=== PATIENT | female | born 1950 | race Caucasian/White ===

== ENCOUNTER 2016-09-24 05:30 | Inpatient (IN) ==
[2016-09-24] MEDS ORDERED: NS 1,000 ML ONE ×6 (06:30→07:41)
[2016-09-24] MEDS ORDERED: HUMALOG (PARKWAY) ONE ×2 (07:28)
[2016-09-24 08:58] LABS: CLARITY CLEAR (CLEAR); COLOR YELLOW; UR AMPHETAMINES QUAL NONE DETECTED (NONE DETECT); UR BARBITUATES QUAL NONE DETECTED (NONE DETECT); UR BENZODIAZEPIN QUAL NONE DETECTED (NONE DETECT); UR CANNABINOIDS QUAL NONE DETECTED (NONE DETECT); UR COCAINE QUAL NONE DETECTED (NONE DETECT); UR MDMA QUAL NONE DETECTED (NONE DETECT); UR METHADONE QUAL NONE DETECTED (NONE DETECT); UR METHAMPHETAMINE QUAL NONE DETECTED (NONE DETECT); UR OPIATES QUAL NONE DETECTED (NONE DETECT); UR OXYCODONE QUAL NONE DETECTED (NONE DETECT); UR PCP QUAL NONE DETECTED (NONE DETECT); UR TCA QUAL NONE DETECTED (NONE DETECT); URINE CULTURE PL NEEDED? NO; URINE EPITHELIAL CELLS <10 /HPF (<10); URINE SOURCE CATH; URINE WBC <10 /HPF (<10)
[2016-09-24 08:59] LABS: BILIRUBIN URINE NEGATIVE (NEGATIVE); BLOOD URINE NEGATIVE (NEGATIVE); LEUKOCYTES URINE TRACE (NEGATIVE); NITRITE URINE NEGATIVE (NEGATIVE); PROTEIN URINE TRACE mg/dL (NEGATIVE); SP GRAVITY URINE 1.015; UROBILINOGEN URINE NORMAL
[2016-09-24 09:00] LABS: MANUAL DIFF NEEDED? NO
[2016-09-24 09:01] LABS: BASO% 0.1 % (0.0-0.8); EOS# 0.01 X1000 (0.0-0.7); EOS% 0.1 % (0.0-10.0); HEMOGLOBIN 15.7 g/dL (12.0-16.0); LYMPH# 0.86 X1000 (1.2-3.4); LYMPH% 11.8 % (20.5-51.1); MCH 28.2 PG (27-31); MCHC 32.7 g/dL (33-37); MCV 86.3 FL (81-99); MPV 11.5 FL (7.4-10.4); NEUT% 76.4 % (42.2-75.2); PLT 488 X1000 (130-400); RBC 5.56 XMIL (4.2-5.4)
[2016-09-24 09:02] LABS: AGAP 29; BUN 165 mg/dL (8-22); CHLORIDE 106 mmol/L (98-107); POTASSIUM 5.9 mmol/L (3.5-5.1); SODIUM 151 mmol/L (136-145); TCO2 16 mmol/L (25-35)
[2016-09-24 09:03] LABS: ACETONE SERUM MODERATE (NEGATIVE); ALBUMIN 3.5 g/dL (3.5-5.0); ALKALINE PHOSPHATASE 84 U/L (32-104); AMYLASE 104 U/L (20-200); CALCIUM 10.4 mg/dL (8.8-10.2); CK PROFILE 731 U/L (24-173); COSMO 390; GOT 32 U/L (10-30); GPT 46 U/L (10-36); LIPASE 88 U/L (13-60); TOTAL PROTEIN 7.5 g/dL (6.3-8.3)
[2016-09-24 09:05] LABS: CK INDEX 0.8 (0.0-2.5)
[2016-09-24] MEDS ORDERED: POTASSIUM CHLORIDE 40 MEQ in NS 250 ML IV PRN (09:21)
[2016-09-24] MEDS ORDERED: D50W SYRINGE IV PRN (09:21)
[2016-09-24] MEDS ORDERED: HUMULIN R 100 UNIT in NS 99 ML IV SCH (09:21)
[2016-09-24] MEDS ORDERED: ZOFRAN IV PRN (09:21)
[2016-09-24] MEDS ORDERED: MAGNESIUM SULFATE 2 GM/S.W.I. 2 GM/50 ML IVPB IV PRN (09:21)
[2016-09-24] MEDS ORDERED: POTASSIUM CHLORIDE 20 MEQ in NS 100 ML IV PRN (09:21)
[2016-09-24] MEDS: NS 1,000 ML IV SCH ×3 (09:38→12:59)
--- NOTE | 2016-09-24 10:47 | EKG Report ---
Test Performed on : 09/24/2016 06:45:16 AM Test Reason : dka Blood Pressure : / mmHG Vent. Rate : 094 BPM Atrial Rate : 094 BPM P-R Int : 124 ms QRS Dur : 114 ms QT Int : 410 ms P-R-T Axes : 044 -11 133 degrees QTc Int : 512 ms Normal sinus rhythm. Anterolateral infarct , age undetermined Prolonged QT Abnormal ECG No previous ECGs available Unconfirmed Result
[2016-09-24 11:02] LABS: BE -12.2 mmoll (-3.0-3.0); BLOOD TYPE ARTERIAL; DRAW SITE R RADIAL; O2(CT) 18.9 mL/dL (15.0-23.0); PCO2(98.6) 30 mmHg (35-45); PO2(98.6) 88 mmHg (60-100); SAMPLE BLOOD; SAO2 96.6 % (95.0-100.0); THB 14.1 g/dL (11.5-17.4); pH(98.6) 7.26 (7.35-7.45)
[2016-09-24 11:03] LABS: HEMOGLOBIN A1C 9.3 % (4.8-6.0)
[2016-09-24 11:06] LABS: ALLEN TEST YES; MODALITY CANNULA
--- NOTE | 2016-09-24 11:32 | PROGRESS NOTE ---
DATE: 09/24/2016 SUBJECTIVE: Today, Ms. Cao referred to be doing a little better than yesterday. Briefly, Ms. Cao is a and lives alone. She has a sister who lives in [place] and another one. According to the sister from [place], they normally communicate almost every day, but they did not hear from her. The last time they heard from her was Monday night when she spoke with one of the other sisters. , nobody heard from her, so yesterday the sister who is here with her tried multiple times to reach her, and she was unsuccessful. So she asked the neighbor to check on her. The neighbor went and knocked several times on a window and realized that the patient was on the floor in the bathroom. So she called back to the sister in [place], and she decided to drive down. Upon arrival, they saw her in the bedroom on the floor. She was not able to get up and she was completely altered. She was brought into the emergency department over here and was found to have a glucose level of 887, completely severely dehydrated. OBJECTIVE: Vital signs: Blood pressure is now 103/68, pulse 105, temperature 97. The patient is saturating 94% on room air. General: Ms. Cao is a 65-year-old female. She is in bed. She does not seem to be in any distress. HEENT: Mucosa is very dry. Anicteric. Acyanotic. Neck: Supple. Chest: Good entry bilaterally. No crepitations. No rhonchi. Cardiovascular: Regular rate and rhythm. Slightly tachycardic. No murmurs. Abdomen: Soft, nontender. Extremities: No pedal edema. SHINGLE CUTTER: The patient is slightly drowsy but easily arousable. She is oriented. She follows commands. DIAGNOSTIC DATA: WBC is 7.37, hemoglobin 15.7, platelet count of 487. Chemistry is reviewed, sodium is 151, potassium 5.9, chloride 106, bicarb 16, gap of 29, BUN is 165, creatinine 2.5, glucose was 887 on presentation. CK of 731. ASSESSMENT: 1. Diabetic ketoacidosis. 2. Severe uncontrolled diabetes. 3. Altered mental status secondary to metabolic encephalopathy. 4. High anion gap metabolic acidosis due to diabetic ketoacidosis. 5. Severe dehydration. 6. Rhabdomyolysis. 7. Multiple excoriations on the patient's skin. 8. Mild lipasemia, likely due to diabetic ketoacidosis. 9. History of hypertension and dyslipidemia. PLAN: In general, Ms. Cao continues to show remarkable improvement. Her glucose currently is 434. We will continue with the DKA protocol with BMP q.4, back and forth q.8. We will adjust the fluid needs accordingly due to her serum osmolality. We will do blood cultures and urine cultures to make sure there is no underlying infection. We will also do a chest x-ray to look at the lungs to rule out pneumonia. For now , the patient is not on any antibiotics. We will make pertinent changes according to her subsequent labs and other results. cc: Jone Soriano MD Critical Time spent is 45minutes MTDD
--- NOTE | 2016-09-24 12:38 | HISTORY AND PHYSICAL ---
PRIMARY CARE PHYSICIAN: Dr. Kayla Gallagher. CHIEF COMPLAINT: Found by her sister this a.m. only muttering words. HISTORY OF PRESENTING ILLNESS: This is a 65-year-old, female, who was brought to [facility] ER via EMS after her sister went to check on her this morning and found that she was lying in the bed with only her camisole on and was muttering "I have been asleep since 5:00" and that was the only response she would give her to any question that she asked. When she arrived at [place], she was noted to have a ABG with a pH of 7.26, pCO2 of 30. Her sodium was 151. Her potassium was 5.9, carbon dioxide level was 16. BUN of 165. Creatinine 2.5. Blood sugar was 887. Her hemoglobin A1c was 9.3. She had moderate acetone in her urine. Urinalysis was negative. She was admitted to the Intensive Care Unit for further evaluation and treatment. PAST MEDICAL HISTORY: Diabetes type 2, hypothyroidism, hypercholesterolemia, and hypertension. PAST SURGICAL HISTORY: None. FAMILY HISTORY: Dad with hypertension and an MO. Mom passed of an aortic aneurysm, and her sister has diabetes type 2. SOCIAL HISTORY: She currently lives alone. Denies any tobacco, alcohol, or illicit drug use. ALLERGIES: Lisinopril. HOME MEDICATIONS: 1. Aspirin 81 mg p.o. daily. 2. Zyrtec 10 mg p.o. daily. 3. Fenofibrate acid 135 mg p.o. daily. 4. Synthroid 50 mcg p.o. daily. 5. Metformin 1000 mg p.o. b.i.d., will be held. 6. Toprol 25 mg p.o. daily. 7. Montelukast sodium 10 mg p.o. at bedtime. 8. Simvastatin 10 mg p.o. at bedtime. 9. Januvia 100 mg p.o. daily will be held. 10. Valsartan 160 mg p.o. daily. 11. We will hold her Diovan at this time due to her increased creatinine. LABORATORY DATA: White blood cell count of 7.27. Hemoglobin of 15.7, hematocrit 48, platelets 488,000. ABG with a pH of 7.26, pCO2 of 30, PO2 of 88. Bicarb 15.3. Sodium 151, potassium 5.9, chloride 106. CO2 of 16. BUN of 165, creatinine 2.5. Glucose 887, hemoglobin A1c was 9.3. AST of 32, ALT 46. Creatine kinase was 731 with a CK-MB with a troponin of 0.010. ProBNP was 118. Plasma lactate of 1.7. Urinalysis was negative except for 1+ ketones and 3+ glucose. Urine drug screen was negative and serum alcohol level showed none detected and acetone level was moderate. Chest x-ray was obtained but is pending, and a head CT was obtained but is pending at this time. REVIEW OF SYSTEMS: Unable to obtain due to patient's altered mental status at this time due to her DKA. PHYSICAL EXAMINATION: VITAL SIGNS: On arrival, she had a temperature of 97 degrees, a pulse of 105, respirations 20, blood pressure 103/68, saturating 94% on 2 L via nasal cannula. GENERAL: This is a 65-year-old, female, who is lying in the bed, unable to answer questions. She does open her eyes to verbal stimuli but unable to answer questions appropriately at this time. Information obtained from her sister who is at the bedside who found her this morning and from the medical record. HEENT: Normocephalic and atraumatic. Pupils are equal, round, reactive to light. Extraocular movements are intact. Oropharynx and nares are clear. NECK: Supple. LUNGS: Clear to auscultation bilaterally with equal lung expansion and chest wall movement. HEART: Regular rate and rhythm. No murmurs, rubs, or gallops. ABDOMEN: Soft, nontender, nondistended. Bowel sounds are present x4 quadrants. EXTREMITIES: No clubbing, cyanosis, or edema. NEUROLOGICAL: The cranial nerves 2-12 appear grossly intact. ASSESSMENT: 1. Diabetic ketoacidosis. 2. Acute kidney injury. 3. Rhabdomyolysis. 4. Diabetes type 2 with hyperglycemia, uncontrolled. PLAN: She was admitted to the Intensive Care Unit and placed on DKA protocol. We will recheck labs per the DKA protocol and follow. She is a full code. Dictated by ROBI Leon for Jone Soriano MD cc: ROBI Leon MD Marlin D. Gill, MD Crtical time spent 45 minutes. See progress notes details for today as well. TAHIR
[2016-09-24] MEDS ORDERED: SODIUM PHOSPHATE 30 MMOL in D5W 250 ML IV PRN (12:58)
--- NOTE | 2016-09-24 13:14 | Diag Imaging Result Document ---
PROCEDURE NAME: HEAD W/O CONTRAST - 09/24/2016 CT BRAIN WITHOUT CONTRAST. TECHNIQUE: Dose reduction protocol. FINDINGS: No parenchymal hemorrhage. No epidural or subdural hematoma. No subarachnoid hemorrhage. No mass identified on this noncontrasted exam. No hydrocephalus. No sinus opacification. There are mild microvascular ischemic changes. IMPRESSION: 1. No hemorrhage. 2. Mild microvascular ischemic changes. A preliminary report was given at 7:30 a.m. [facility]
--- NOTE | 2016-09-24 13:22 | Diag Imaging Result Document ---
PROCEDURE NAME: CHEST-PORTABLE - 09/24/2016 PORTABLE CHEST: FINDINGS: The lungs are well expanded. The heart is not enlarged. The vessels are not distended. No pneumonia. No pleural effusions identified. The right hemidiaphragm is elevated. IMPRESSION: Negative chest. A preliminary report was given at 7:56 a.m. MTDD
[2016-09-24 13:48] LABS: AGAP 14; BUN 10 mg/dL (8-22); CALCIUM 8.9 mg/dL (8.8-10.2); CHLORIDE 103 mmol/L (98-107); COSMO 269; MAGNESIUM 1.9 mg/dL (1.5-2.7); POTASSIUM 3.9 mmol/L (3.5-5.1); SODIUM 136 mmol/L (136-145); TCO2 20 mmol/L (25-35)
[2016-09-24] MEDS ORDERED: 1/2 NS + KCL 20 MEQ 1,000 ML IV SCH (14:00)
[2016-09-24] MEDS: HUMULIN R 100 UNIT in NS 100 ML IV ONE ×2 (14:48→14:49)
[2016-09-24] MEDS ORDERED: POTASSIUM CHLORIDE 20 MEQ/SWI 40 MEQ/200 ML IVPB IV PRN (15:30)
[2016-09-24] MEDS ORDERED: POTASSIUM CHLORIDE 40 MEQ/SWI 40 MEQ/100 ML IVPB IV PRN (15:36)
[2016-09-24] MEDS: POTASSIUM CHLORIDE 20 MEQ/SWI 20 MEQ/100 ML IVPB IV PRN ×2 (15:42→22:13)
[2016-09-24] MEDS ORDERED: D5 1/2 NS + KCL 20 MEQ 1,000 ML IV SCH (17:00)
[2016-09-24 19:11] LABS: CHLORIDE 130 mmol/L (98-107); POTASSIUM 4.8 mmol/L (3.5-5.1); TCO2 15 mmol/L (25-35)
[2016-09-24 19:12] LABS: AGAP 15; BUN 90 mg/dL (8-22)
[2016-09-24 19:13] LABS: CALCIUM 9.1 mg/dL (8.8-10.2); COSMO 349; MAGNESIUM 3.1 mg/dL (1.5-2.7)
[2016-09-24 19:14] LABS: SODIUM 160 mmol/L (136-145)
[2016-09-24] MEDS: D5W 1,000 ML IV SCH (19:43)
[2016-09-24] MEDS: SINGULAIR PO SCH (20:09)
[2016-09-24] MEDS: ZOCOR PO SCH (20:09)
[2016-09-24 22:09] LABS: CALCIUM 8.8 mg/dL (8.8-10.2); POTASSIUM 4.7 mmol/L (3.5-5.1)
[2016-09-25] MEDS: D5W 1,000 ML IV SCH ×2 (05:41→15:34)
[2016-09-25 06:20] LABS: MANUAL DIFF NEEDED? NO
[2016-09-25 06:24] LABS: BASO% 0.2 % (0.0-0.8); EOS# 0.11 X1000 (0.0-0.7); EOS% 2.3 % (0.0-10.0); HEMOGLOBIN 11.5 g/dL (12.0-16.0); IMM GRAN# 0.05 X1000 (0.0-0.04); IMM GRAN% 1.1 % (0.0-0.5); LYMPH# 1.05 X1000 (1.2-3.4); LYMPH% 22.2 % (20.5-51.1); MCH 28.3 PG (27-31); MCHC 31.9 g/dL (33-37); MCV 88.5 FL (81-99); MONO# 0.41 X1000 (0.11-0.59); MONO% 8.7 % (1.7-9.3); MPV 10.7 FL (7.4-10.4); NEUT% 65.5 % (42.2-75.2); PLT 318 X1000 (130-400); RBC 4.07 XMIL (4.2-5.4)
[2016-09-25 06:56] LABS: MAGNESIUM 2.4 mg/dL (1.5-2.7)
[2016-09-25 07:02] LABS: AGAP 13; BUN 49 mg/dL (8-22); CALCIUM 7.9 mg/dL (8.8-10.2); CHLORIDE 109 mmol/L (98-107); COSMO 325; MAGNESIUM 2.4 mg/dL (1.5-2.7); POTASSIUM 3.8 mmol/L (3.5-5.1); SODIUM 139 mmol/L (136-145); TCO2 17 mmol/L (25-35)
[2016-09-25 07:24] LABS: AGAP 14; ALBUMIN 2.3 g/dL (3.5-5.0); ALKALINE PHOSPHATASE 53 U/L (32-104); CALCIUM 7.7 mg/dL (8.8-10.2); CHLORIDE 112 mmol/L (98-107); CK PROFILE 223 U/L (24-173); COSMO 328; GOT 26 U/L (10-30); GPT 30 U/L (10-36); SODIUM 143 mmol/L (136-145); TCO2 17 mmol/L (25-35); TOTAL PROTEIN 5.2 g/dL (6.3-8.3)
[2016-09-25 07:25] LABS: BUN 50 mg/dL (8-22)
[2016-09-25 07:32] LABS: CK INDEX 1.4 (0.0-2.5)
[2016-09-25] MEDS: POTASSIUM CHLORIDE 20 MEQ/SWI 20 MEQ/100 ML IVPB IV PRN (07:50)
[2016-09-25] MEDS ORDERED: DIOVAN PO SCH (09:00)
[2016-09-25] MEDS ORDERED: SYNTHROID PO SCH (09:00)
[2016-09-25] MEDS: TOPROL XL PO SCH (09:01)
[2016-09-25] MEDS: TRICOR PO SCH (09:02)
[2016-09-25] MEDS: ASPIRIN EC PO SCH (09:02)
[2016-09-25] MEDS: ZYRTEC PO SCH (09:02)
[2016-09-25] MEDS ORDERED: BLISTEX MEDICATED BERRY LIP BALM TOP PRN (09:13)
[2016-09-25 10:21] LABS: AGAP 12; BUN 48 mg/dL (8-22); CALCIUM 9.6 mg/dL (8.8-10.2); CHLORIDE 126 mmol/L (98-107); COSMO 333; MAGNESIUM 2.7 mg/dL (1.5-2.7); POTASSIUM 4.6 mmol/L (3.5-5.1); SODIUM 158 mmol/L (136-145); TCO2 20 mmol/L (25-35)
[2016-09-25] MEDS ORDERED: LANTUS INSULIN (PARKWAY) SUBQ ONE (12:15)
--- NOTE | 2016-09-25 15:32 | PROGRESS NOTE ---
DATE: 09/25/2016 SUBJECTIVE: Today Ms. Cao refers to be doing a whole lot better. She is more alert. She is more conversational. OBJECTIVE: Vital signs: Blood pressure is 144/65, pulse of 94, respirations 22, temperature is 97.8 degrees. General: Ms. Cao is a 65-year-old female. She was in bed. She did not seem to be in any distress. HEENT: Mucosa is pink and moist. Anicteric. Acyanotic. Neck: Supple. Chest: Clear. Cardiovascular: Regular rate and rhythm. Abdomen: Soft, nontender. Extremities: No pedal edema. SEED ANALYST: Patient is alert and oriented x4. There is no focal neurological deficit. LABORATORY DATA: WBC is 4.73, hemoglobin is 11.5, platelet count is 318,000. Chemistry: Sodium is 158, potassium is 4.6, chloride is 126, bicarb is 20, anion gap is 12, BUN is 48, this is read remarkably and down, glucose is 229. ASSESSMENT: 1. Diabetic ketoacidosis. This has resolved. 2. Severe uncontrolled diabetes mellitus. Patient's A1c on presentation is 9.3, which I think patient will eventually be needing insulin for the short term to get the glucose better. 3. Severe dehydration. Improved. 4. Rhabdomyolysis. This has also significantly improved. 5. Multiple skin excoriations, noted. 6. Mild lipasemia, likely due to the diabetic ketoacidosis. 7. History of hypertension and dyslipidemia. We will restart the patient on her home medications. PLAN: So in general I think Ms. Cao is a whole lot better today. The DKA is resolved. We are going to start the patient on a diabetic diet. We will give her 20 units of glargine after the meals. Will allow the drip to overlap this for 2 hours. At the end of the 2 hours we will turn off the drip. Will continue the D5 water to address the hypernatremia with the hyperchloremia. We will also DC the Norton catheter. Hopefully the patient continues to improve and we will hopefully transfer her from the ICU to a regular floor tomorrow. cc: Jone Soriano MD
[2016-09-25] MEDS: HUMULIN R DOSE (PARKWAY) SUBQ SCH ×2 (15:37→20:20)
[2016-09-25] MEDS: ZOCOR PO SCH (20:20)
[2016-09-25] MEDS: SINGULAIR PO SCH (20:20)
[2016-09-26] MEDS: D5W 1,000 ML IV SCH (01:35)
[2016-09-26] MEDS: HUMULIN R DOSE (PARKWAY) SUBQ SCH ×4 (06:34→20:30)
[2016-09-26 06:50] LABS: AGAP 11; BUN 27 mg/dL (8-22); CALCIUM 8.6 mg/dL (8.8-10.2); CHLORIDE 111 mmol/L (98-107); COSMO 300; POTASSIUM 4.3 mmol/L (3.5-5.1); SODIUM 141 mmol/L (136-145); TCO2 20 mmol/L (25-35)
[2016-09-26] MEDS: SYNTHROID PO SCH (07:07)
[2016-09-26] MEDS: ASPIRIN EC PO SCH (08:47)
[2016-09-26] MEDS: TRICOR PO SCH (08:47)
[2016-09-26] MEDS: TOPROL XL PO SCH (08:48)
[2016-09-26] MEDS: ZYRTEC PO SCH (08:48)
[2016-09-26] MEDS ORDERED: LANTUS INSULIN (PARKWAY) SUBQ SCH ×3 (09:00→10:33)
[2016-09-26] MEDS ORDERED: TYLENOL PO PRN (10:27)
[2016-09-26] MEDS ORDERED: VICTOZA SUBQ ONE (10:29)
[2016-09-26] MEDS ORDERED: JANUVIA PO SCH (10:30)
[2016-09-26] MEDS ORDERED: GLUCOPHAGE PO SCH (10:30)
--- NOTE | 2016-09-26 11:25 | PROGRESS NOTE ---
DATE: 09/26/2016 SUBJECTIVE: Patient weak but looks overall improved. Apparently mental status had improved. Appetite has improved. OBJECTIVE: Vital Signs: Blood pressure 119/76, heart rate of 82, respiratory rate of 17, temperature 98.1 degrees, 99% on room air. Cardiovascular: Regular rate and rhythm. Pulmonary: Bilateral breath sounds clear to auscultation. GI: Soft, nontender, nondistended. Bowel sounds were positive. Laboratory Data: Sodium 141, creatinine 0.7, BUN is down to 27. Apparently, it was very high when she came in. BUN was 165. Her sodium was 160. It had gotten up to 151. Sugar was 87. ASSESSMENT AND PLAN: In any case, clinically she appears to be improved. She has been placed on Lantus which were going to up regulate. I am going to bump up to 40 units and we will follow closely. Other than that, stabilized. 1. Diabetic ketoacidosis. We will continue Lantus and follow closely. I am going to up regulate that. She has been on metformin and Januvia. However, because of her sugar above 800, I think were going to convert her to Lantus and see how she does. 2. Hypertriglyceridemia, stable. Continue medications. 3. Hypothyroidism, stable. Continue to follow. 4. Disposition. Once sugars have stabilized, will go home. That may be 1-2 days away. cc: MD Jone Bowers MD
[2016-09-26] MEDS: ZOCOR PO SCH (20:30)
[2016-09-26] MEDS: SINGULAIR PO SCH (20:30)
[2016-09-27] MEDS: HUMULIN R DOSE (PARKWAY) SUBQ SCH ×4 (06:24→20:54)
[2016-09-27] MEDS: SYNTHROID PO SCH (06:25)
[2016-09-27 06:26] LABS: AGAP 13; BUN 18 mg/dL (8-22); CALCIUM 8.6 mg/dL (8.8-10.2); CHLORIDE 109 mmol/L (98-107); COSMO 288; HEMOGLOBIN 12.8 g/dL (12.0-16.0); MCH 27.3 PG (27-31); MCV 85.3 FL (81-99); MPV 10.9 FL (7.4-10.4); POTASSIUM 4.6 mmol/L (3.5-5.1); RBC 4.69 XMIL (4.2-5.4); SODIUM 140 mmol/L (136-145); TCO2 18 mmol/L (25-35)
--- NOTE | 2016-09-27 08:57 | PROGRESS NOTE ---
DATE: 09/27/2016 SUBJECTIVE: Patient notes she feels much better today. She denies any chest pain, palpitations. PHYSICAL: Vital Signs: Temperature 97, pulse 70, respiratory rate 22. General: Patient is awake, alert. She is in no respiratory distress. She is on room air 96%. HEENT: Normocephalic. Neck: Supple. CV: Regular rate. Chest: Clear, nonlabored. Abdomen: Soft. Extremities: Moves all extremities. Neurologic: Patient has no focal neurological changes. ASSESSMENT: 1. Diabetic ketoacidosis, resolved. She currently is doing much better on Lantus with blood sugars in the 200 range. We will increase her Lantus slightly from 40-42 units and follow. 2. Hypertriglyceridemia. 3. Hypothyroidism. 4. Adult failure to thrive. PLAN: We will move her to the floor. Get physical therapy involved. Hopefully home or to rehab in the next few days. cc: Scotty Jose MD
[2016-09-27] MEDS ORDERED: VICTOZA SUBQ SCH (09:00)
[2016-09-27] MEDS: ZYRTEC PO SCH (09:05)
[2016-09-27] MEDS: LANTUS INSULIN (PARKWAY) SUBQ SCH (09:05)
[2016-09-27] MEDS: TRICOR PO SCH (09:06)
[2016-09-27] MEDS: ASPIRIN EC PO SCH (09:06)
[2016-09-27] MEDS: TOPROL XL PO SCH (09:06)
[2016-09-27] MEDS: ZOCOR PO SCH (20:53)
[2016-09-27] MEDS: SINGULAIR PO SCH (20:53)
[2016-09-28] MEDS: HUMULIN R DOSE (PARKWAY) SUBQ SCH ×2 (06:32→11:27)
[2016-09-28] MEDS: SYNTHROID PO SCH (06:33)
[2016-09-28] MEDS: TRICOR PO SCH (08:01)
[2016-09-28] MEDS: LANTUS INSULIN (PARKWAY) SUBQ SCH (08:01)
[2016-09-28] MEDS: ZYRTEC PO SCH (08:01)
[2016-09-28] MEDS: TOPROL XL PO SCH (08:01)
[2016-09-28] MEDS: ASPIRIN EC PO SCH (08:01)
--- NOTE | 2016-09-28 14:07 | Extremity Venous Study ---
EXAM: Carotid Ultrasound INDICATION: syncope COMPARISON: None. FINDINGS: Right: There are soft atherosclerotic plaques involving the mid common carotid artery, proximal ICA, and proximal ECA. The peak systolic velocity measures 257, 104, 43, 74, 76, 69, and 146 cm/s at the right subclavian artery, CCA, bifurcation, proximal ICA, mid ICA, distal ICA, and ECA, respectively. There is antegrade flow in the vertebral artery. The carotid ratio is 0.74. Left: There is soft atherosclerotic plaque involving the mid and distal CCA extending toward the carotid bulb. The peak systolic velocity measures 150, 98, 78, 102, 74, 78, and 167 cm/s at the left subclavian artery, CCA, bifurcation, proximal ICA, mid ICA, distal ICA, and ECA, respectively. There is antegrade flow in the vertebral artery. The carotid ratio is 1.04. IMPRESSION: Soft plaques involving both carotid systems as described. However, based on velocities, there is no evidence of hemodynamically significant stenosis. Electronically signed by José Russell 09/28/2016 2:04 PM
[2016-09-28] MEDS ORDERED: PNEUMOVAX 23 IM ONE (14:37)
[2016-09-28] MEDS ORDERED: HUMULIN R (PARKWAY) SUBQ SCH (15:19)
[2016-09-28 16:34] VITALS: BP 121/73
--- NOTE | 2016-09-29 05:32 | DISCHARGE SUMMARY ---
ADMISSION DATE: 09/24/2016 DISCHARGE DATE: 09/28/2016 DIAGNOSES: 1. Diabetic ketoacidosis, resolved. 2. Acute kidney injury, resolved. 3. Rhabdomyolysis, resolved. 4. Hypothyroidism. 5. Hypertriglyceridemia. DIAGNOSTICS: 1. 09/24/2016, chest x-ray revealed a negative chest. 2. 09/24/2016, CT of the head revealed no hemorrhage. Mild microvascular ischemic changes. MICROBIOLOGY: 1. Blood cultures x2 revealed no growth after 48 hours. 2. Urine culture revealed no growth. HOSPITAL COURSE: Ms. Cao presented to [place] ER after she was found lying in bed confused and lethargic. She was found to be in diabetic ketoacidosis. She was admitted to ICU on DKA protocol. Insulin drip was weaned. She was placed back on her home medications with a diabetic diet. Blood sugars did return to the mid 200 range with the last one today being 153 and is continuing to improve. We did continue her home medications. She was found to have a creatinine of 2.5 on admission. She is now 0.7. It did drop steadily after hydration. Electrolytes were followed and repleted as appropriate. CPK was 731 on admission. This has declined. She was evaluated by Physical Therapy, who recommended PT as well as OT for ADLs in an inpatient facility. This was discussed with the patient and her family members and she refuses to go to an inpatient rehab. She wishes to go home and have outpatient rehab access arranged. PHYSICAL EXAMINATION: Cardiovascular: Regular rate and rhythm. S1 and S2 appreciated. Pulmonary: Breath sounds are clear with no increased work of breathing noted. Gastrointestinal: Abdomen is soft, nontender, nondistended with bowel sounds in all 4 quadrants. Extremities: No clubbing, cyanosis, or edema. Pulses are palpable x4. Calves are nontender. Neurologic: She is alert and oriented x3. Cranial nerves 2-12 grossly intact. Vital Signs: Blood pressure is 130/81 with a heart rate of 92, respirations 20, temperature 98.4 degrees oral with room air saturations of 96% to 98%. DISCHARGE ACTIVITY: As tolerated. DISCHARGE DIET: Diabetic. PT/OT will be arranged through rehab access. FOLLOWUP: She is to follow up her primary care physician, Dr. Kayla Gallagher, within the next 1-2 weeks. CONDITION: She is being discharged home in stable condition with family members. TIME SPENT: This is a greater than 30-minute discharge. Dictated by ROBI Fitzpatrick for Scotty Jose MD cc: ROBI Fitzpatrick MD
== END 2016-09-28 18:55 | disposition home or self-care (01) ==
LOC: P.ED 05:30 → SUATTDRO 08:27 → P.ICU 08:27 → P.MEDSURG 09-27 11:28
PROVIDERS: ATTEND Family Medicine